=== PATIENT | female | born 1950 | race Caucasian/White ===

== ENCOUNTER 2020-10-16 06:27 | Emergency (ER) | payer MEDICARE, OTHER ==
[2020-10-16] MEDS: Loperamide 2 MG Cap PO ONE (07:12)
[2020-10-16] MEDS: Sodium Chloride 0.9% 1,000 ML IV ONE (07:13)
[2020-10-16] MEDS: Sodium Chloride 0.9% 1,000 ML ONE (07:15)
--- NOTE | 2020-10-16 07:24 | EDM.PDOC ---
ED HPI GENERAL MEDICAL PROBLEM - General Chief Complaint: Gastrointestinal Problem Stated Complaint: diarrhea Time Seen by Provider: 10/16/20 07:12 Source of Information: Reports: Patient History Limitations: Reports: No Limitations - History of Present Illness INITIAL COMMENTS - FREE TEXT/NARRATIVE: Presents the emergency room for chief complaint of diarrhea which started 2 days ago. Patient notes starting Lexapro and increasing her dose of hypertension med was seen in the clinic by her PCP. Evening she started taking Lexapro and the following morning she had a loose stool. Later that evening she had a loose diarrhea stool. The next day she had 1 diarrhea stool. She woke up last night and had two watery dark brown stools. Denies any abdominal pain or severe cramp ing, vomiting, or nausea. After she went to the bathroom last night she felt little tingling sensation throughout her body. That has resolved. She denies any chest pain shortness of breath fever chills. She notes she had a distant close contact in a house during to patient who is asymptomatic time but later tested positive that very next day with COVID-19 on [place]. Has been 10 days since that exposure. - Related Data Allergies Allergy/AdvReac Type Severity Reaction Status Date / Time guaifenesin [From Robitussin] Allergy tingling Verified 10/16/20 07:27 sensation Sulfa (Sulfonamide Allergy tingling Verified 10/16/20 07:27 Antibiotics) sensation Home Meds: Home Meds ALPRAZolam [Xanax] 0.25 mg PO Q12H PRN 10/16/20 [History] Cholecalciferol (Vitamin D3) [Vitamin D3] 1,000 unit PO DAILY 10/16/20 [History] Escitalopram [Lexapro] 10 mg PO BEDTIME 10/16/20 [History] Loperamide [Imodium] 2 mg PO ASDIRECTED PRN 10/16/20 [History] Loratadine [Claritin] 10 mg PO DAILY PRN 10/16/20 [History] Pantoprazole Sodium [Protonix] 40 mg PO DAILY 10/16/20 [History] Simvastatin [Zocor] 10 mg PO BEDTIME 10/16/20 [History] Triamcinolone Acetonide [Triamcinolone Acetonide 0.1% Crm] 1 applic TOP BID PRN 10/16/20 [History] lisinopriL [Prinivil] 20 mg PO DAILY 10/16/20 [History] ED ROS GENERAL - Review of Systems Review Of Systems: See Below Constitutional: Reports: No Symptoms. Denies: Fever, Chills HEENT: Reports: No Symptoms Respiratory: Reports: No Symptoms. Denies: Shortness of Breath Cardiovascular: Reports: No Symptoms. Denies: Chest Pain GI/Abdominal: Reports: Diarrhea. Denies: Abdominal Pain, Black Stool, Bloody Stool, Distension, Hematemesis, Hematochezia, Mucous in Stool, Nausea, Vomiting : Reports: No Symptoms Musculoskeletal: Reports: No Symptoms Neurological: Reports: Tingling, Other (which has resolved. ) Psychiatric: Reports: Anxiety (Hx of anxiety with elevated BP, which she was started on lexapro as of recent) Hematologic/Lymphatic: Reports: No Symptoms ED EXAM, GI/ABD - Physical Exam Exam: See Below Exam Limited By: No Limitations General Appearance: Alert, WD/WN, No Apparent Distress Nose: Normal Inspection Throat/Mouth: Normal Inspection, Normal Oropharynx Head: Atraumatic, Normocephalic Neck: Normal Inspection, Supple, Non-Tender, Full Range of Motion. No: Lymphadenopathy (L), Lymphadenopathy (R) Respiratory/Chest: No Respiratory Distress, Lungs Clear, Normal Breath Sounds Cardiovascular: Normal Peripheral Pulses, Regular Rate, Rhythm, No Murmur GI/Abdominal Exam: Normal Bowel Sounds, Soft, Non-Tender, No Distention Back Exam: Normal Inspection Extremities: Normal Inspection, Normal Range of Motion, No Pedal Edema Neurological: Alert, Oriented, Normal Cognition, Normal Gait Psychiatric: Normal Affect, Normal Mood Skin Exam: Warm, Dry, Intact Course - Vital Signs Last Recorded V/S: Last Vital Signs Temp 97.3 F 10/16/20 06:35 Pulse 74 10/16/20 06:35 Resp 20 10/16/20 06:35 BP 149/96 H 10/16/20 06:35 Pulse Ox 98 10/16/20 06:35 - Orders/Labs/Meds Orders: Active Orders 24 hr Category Date Time Status Peripheral IV Care [RC] . DIRECTED Care 10/16/20 07:40 Active CORONAVIRUS COVID-19 IRINA [MOLEC] Stat Lab 10/16/20 07:49 Ordered Sodium Chloride 0.9% [Normal Saline] 1,000 ml Med 10/16/20 07:10 Active IV .BOLUS Sodium Chloride 0.9% [Saline Flush] Med 10/16/20 07:40 Active 10 ml FLUSH Q8HR PRN Peripheral IV Insertion Adult [OM.PC] Routine Oth 10/16/20 07:00 Ordered Medication Orders Sodium Chloride (Normal Saline) 1,000 mls @ 999 mls/hr IV .BOLUS ONE Stop: 10/16/20 08:10 Last Admin: 10/16/20 07:13 Dose: 999 mls/hr Documented by: ERICKA Sodium Chloride (Saline Flush) 10 ml FLUSH Q8HR PRN PRN Reason: keep vein open Labs: Laboratory Tests 10/16/20 10/16/20 10/16/20 Range/Units 06:50 07:00 07:14 WBC 7.99 (5.00-10.00) 10^3/uL RBC 4.39 (3.80-5.50) 10^6/uL Hgb 13.2 (12.0-16.0) g/dL Hct 40.8 (37.0-47.0) % MCV 92.9 H (82.0-92.0) fL MCH 30.1 (27.0-31.0) pg MCHC 32.4 (32.0-36.0) g/dL RDW 12.9 (11.5-14.5) % Plt Count 213 (150-400) 10^3/uL MPV 11.4 H (7.4-10.4) fL Immature Gran % (Auto) 0.1 (0.0-5.0) % Neut % (Auto) 81.2 H (50.0-70.0) % Lymph % (Auto) 12.4 L (20.0-40.0) % [place] % (Auto) 4.6 (2.0-8.0) % Eos % (Auto) 1.4 (1.0-3.0) % Baso % (Auto) 0.3 (0.0-1.0) % Neut # (Auto) 6.49 (2.50-7.00) 10^3/uL Lymph # (Auto) 0.99 L (1.00-4.00) 10^3/uL [place] # (Auto) 0.37 (0.10-0.80) 10^3/uL Eos # (Auto) 0.11 (0.10-0.30) 10^3/uL Baso # (Auto) 0.02 (0.00-0.10) 10^3/uL Immature Gran # (Auto) 0.01 (0.00-0.50) 10^3/uL Sodium 139 (136-145) mmol/L Potassium 4.9 (3.5-5.1) mmol/L Chloride 104 (98-107) mmol/L Carbon Dioxide 23.7 (21.0-32.0) mmol/L Anion Gap 16.2 H (5-15) mmol/L BUN 19 H (7-18) mg/dL Creatinine 0.67 (0.51-1.17) mg/dL Est Cr Clr Drug Dosing 65.55 mL/min Estimated GFR (MDRD) > 60 mL/min Glucose 100 (70-140) mg/dL Calcium 8.4 L (8.7-10.3) mg/dL Total Bilirubin 0.5 (0.2-1.0) mg/dL AST 33 (15-37) U/L ALT 32 (14-63) U/L Alkaline Phosphatase 46 (46-116) U/L Total Protein 7.0 (6.4-8.2) g/dL Albumin 3.53 (3.40-5.00) g/dL Specimen Type Urinblad Urine Color Light yellow (YELLOW) Urine Appearance Clear (CLEAR) Urine pH 6.5 (5.0-9.0) Ur Specific [place] 1.020 (1.005-1.030) Urine Protein Negative (NEGATIVE) mg/dL Urine Glucose (UA) Negative (NEGATIVE) mg/dL Urine Ketones Negative (NEGATIVE) mg/dL Urine Occult Blood Trace-intact H (NEGATIVE) Urine Nitrite Negative (NEGATIVE) Urine Bilirubin Negative (NEGATIVE) Urine Urobilinogen 0.2 (0.2-1.0) E.U./dL Ur Leukocyte Esterase Negative (NEGATIVE) Urine RBC 0-5 (0-5) /HPF Urine WBC 0-5 (0-5) /HPF Ur Epithelial Cells Few /LPF Urine Bacteria Rare (NONE TO FEW) /HPF Urine Mucus Occasional H (NEGATIVE) /LPF Meds: Medications Generic Name Dose Route Start Last Admin Trade Name Freq PRN Reason Stop Dose Admin Sodium Chloride 1,000 mls @ 999 mls/hr 10/16/20 07:10 10/16/20 07:13 Normal Saline IV 10/16/20 08:10 999 mls/hr .BOLUS ONE Administration Sodium Chloride 10 ml 10/16/20 07:40 Saline Flush FLUSH Q8HR PRN keep vein open Discontinued Medications Generic Name Dose Route Start Last Admin Trade Name Najma PRN Reason Stop Dose Admin Sodium Chloride Confirm 10/16/20 06:47 10/16/20 07:15 Normal Saline Administered 10/16/20 06:48 Not Given Dose 1,000 mls @ as directed .ROUTE .STK-MED ONE Loperamide HCl 4 mg 10/16/20 07:10 10/16/20 07:12 Imodium PO 10/16/20 07:11 4 mg ONETIME ONE Administration - Re-Assessments/Exams Free Text/Narrative Re-Assessment/Exam: 10/16/20 07:38 No recent usage of antibiotics doubt C. difficile. She had a total of 4 stools in the last 3 days. No signs of dehydration. She was given 4 mg loperamide. 1 L of normal saline. Checking labs CBC electrolytes kidney and renal function. UA was ordered. Stool occult test was ordered as well. Patient declined rectal exam however she needed to have her stool collected and assess for blood therefore she was able to go have a large loose stool (which was color of brown, not black)into a collection device. COVID-19 test state was sent out patient be contacted and will renal quarantine until she finds out the results. 10/16/20 07:40 15% of patients with starting to take Lexapro can develop diarrhea. No red flags this diarrhea, doubt infectious cause at this time. she has no acute abdomen. neg. occult stool. Patient appears to be very well able tolerate p.o. fluids no signs of dehydration. Calcium just very slightly low than normal. On the night labs reassuring. I did consult her PCP which is Shelli [facility] who is on- call this morning. Reviewed the case with her. Continue with Lexapro follow-up in the clinic as scheduled this following week. continue to push fluids, electrolytes, take loperamide PO as needed [id number]. Avoid excessive dosing of loperamide as it can cause QT prolongation and constipation. Patient verbalized understanding. Departure - Departure Time of Disposition: 08:04 Disposition: Home, Self-Care 01 Condition: Good Clinical Impression: Diarrhea due to drug - Discharge Information *PRESCRIPTION DRUG MONITORING PROGRAM REVIEWED*: No *COPY OF PRESCRIPTION DRUG MONITORING REPORT IN PATIENT KIRK: No Instructions: Dehydration, Elderly, [id number] Forms: ED Department Discharge Additional Instructions: f/u with Shelli in the clinic after the covid-test returns quarantine until testing returns. push fluids and electrolytes loperamide OTC as needed for diarrhea continue with Lexapro. Sepsis Event Note (ED) - Focused Exam Vital Signs: Vital Signs Temp Pulse Resp BP Pulse Ox 10/16/20 06:35 97.3 F 74 20 149/96 H 98 - My Orders Last 24 Hours: My Active Orders 10/16/20 07:00 Peripheral IV Insertion Adult [OM.PC] Routine 10/16/20 07:10 Sodium Chloride 0.9% [Normal Saline] 1,000 ml IV .BOLUS 10/16/20 07:40 Peripheral IV Care [RC] . DIRECTED Sodium Chloride 0.9% [Saline Flush] 10 ml FLUSH Q8HR PRN 10/16/20 07:49 CORONAVIRUS COVID-19 IRINA [MOLEC] Stat - Assessment/Plan Last 24 Hours: My Active Orders 10/16/20 07:00 Peripheral IV Insertion Adult [OM.PC] Routine 10/16/20 07:10 Sodium Chloride 0.9% [Normal Saline] 1,000 ml IV .BOLUS 10/16/20 07:40 Peripheral IV Care [RC] . DIRECTED Sodium Chloride 0.9% [Saline Flush] 10 ml FLUSH Q8HR PRN 10/16/20 07:49 CORONAVIRUS COVID-19 IRINA [MOLEC] Stat
[2020-10-16 07:39] LABS: ANION GAP 16.2 mmol/L (5-15); CHLORIDE,CL 104 mmol/L (98-107); SODIUM,NA 139 mmol/L (136-145)
[2020-10-16] MEDS ORDERED: Sodium Chloride 0.9% 10 ML Syringe FLUSH PRN (07:40)
== END 2020-10-16 08:20 | disposition home or self-care (01) ==
LOC: KA.ED 06:27
DX: K52.1 Toxic gastroenteritis and colitis (principal); Z88.8 Allergy status to other drugs, medicaments and biological substances; Z88.2 Allergy status to sulfonamides; T43.225A Adverse effect of selective serotonin reuptake inhibitors, initial encounter; Z79.899 Other long term (current) drug therapy
CPT/HCPCS: 36415; 80053; 81001; 82270; 85025; 99283; 99284; A9270-GY; J7030

== ENCOUNTER 2020-11-15 11:05 | Observation (INO) | payer MEDICARE, OTHER ==
[2020-11-15] MEDS ORDERED: Sodium Chloride 0.9% 1,000 ML IV ONE (11:30)
[2020-11-15] MEDS ORDERED: Sodium Chloride 0.9% 10 ML Syringe FLUSH PRN ×3 (11:30→13:25)
--- NOTE | 2020-11-15 11:33 | EDM.PDOC ---
ED HPI GENERAL MEDICAL PROBLEM - General Chief Complaint: Respiratory Problem Stated Complaint: CHEST PAIN Time Seen by Provider: 11/15/20 11:15 Source of Information: Reports: Patient History Limitations: Reports: No Limitations - History of Present Illness INITIAL COMMENTS - FREE TEXT/NARRATIVE: 69 YO WF PRESENTS TO ER COMPLAINING OF CHEST PRESSURE/CHEST HEAVINESS AND BILATERAL ARM DISCOMFORT WHICH BEGAN 7AM. PT WAS DIAGNOSED WITH COVID 1 WEEK AGO. PT WAS ASYMPTOMATIC UNTIL 4 DAYS AGO WHEN SHE DEVELOPED CHILLS AND LOSS OF SMELL AND TASTE. PT RECEIVED OUTPATIENT CONVALESCENT PLASMA ON 11/11/20. PT DENIES SHORTNESS OF BREATH, DIZZINESS, DIAPHORESIS, OR NAUSEA/VOMITING. PT DENIES FEVERS OR COUGH. PT REPORTS CHEST PRESSURE AND ARM DISCOMFORT HAVE RESOLVED PRIOR TO ER VISIT. Onset: Today Duration: Hour(s): (4) Location: Reports: Chest, Upper Extremity, Left, Upper Extremity, Right Quality: Reports: Dull, Pressure Severity: Mild Improves with: Reports: None Worsens with: Reports: None Associated Symptoms: Reports: Chest Pain, Fever/Chills - Related Data Allergies Allergy/AdvReac Type Severity Reaction Status Date / Time guaifenesin [From Robitussin] Allergy tingling Verified 11/15/20 11:42 sensation Sulfa (Sulfonamide Allergy tingling Verified 11/15/20 11:42 Antibiotics) sensation Home Meds: Home Meds ALPRAZolam [Xanax] 0.25 mg PO Q12H PRN 10/16/20 [History] Cholecalciferol (Vitamin D3) [Vitamin D3] 1,000 unit PO DAILY 10/16/20 [History] Escitalopram [Lexapro] 10 mg PO BEDTIME 10/16/20 [History] Loperamide [Imodium] 2 mg PO ASDIRECTED PRN 10/16/20 [History] Loratadine [Claritin] 10 mg PO DAILY PRN 10/16/20 [History] Pantoprazole Sodium [Protonix] 40 mg PO DAILY 10/16/20 [History] RX: lisinopriL [Prinivil] 40 mg PO DAILY 10/16/20 [History] Simvastatin [Zocor] 20 mg PO BEDTIME 10/16/20 [History] Triamcinolone Acetonide [Triamcinolone Acetonide 0.1% Crm] 1 applic TOP BID PRN 10/16/20 [History] Past Medical History HEENT History: Reports: None Cardiovascular History: Reports: High Cholesterol, Hypertension Respiratory History: Reports: None Gastrointestinal History: Reports: None Genitourinary History: Reports: None 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 Musculoskeletal History: Reports: None Neurological History: Reports: None Psychiatric History: Reports: None Endocrine/Metabolic History: Reports: None Hematologic History: Reports: None Immunologic History: Reports: None Oncologic (Cancer) History: Reports: None Dermatologic History: Reports: None - Infectious Disease History Infectious Disease History: Reports: Chicken Pox, Measles Social & Family History - Family History Family Medical History: No Pertinent Family History - Caffeine Use Caffeine Use: Reports: Tea ED ROS GENERAL - Review of Systems Review Of Systems: See Below Constitutional: Reports: Fever, Decreased Appetite HEENT: Reports: Rhinitis Respiratory: Reports: No Symptoms Cardiovascular: Reports: Chest Pain Endocrine: Reports: No Symptoms GI/Abdominal: Reports: Diarrhea : Reports: No Symptoms Musculoskeletal: Reports: No Symptoms Skin: Reports: No Symptoms Neurological: Reports: No Symptoms Psychiatric: Reports: No Symptoms Hematologic/Lymphatic: Reports: No Symptoms Immunologic: Reports: No Symptoms ED EXAM, GENERAL - Physical Exam Exam: See Below Exam Limited By: No Limitations General Appearance: Alert, WD/WN, No Apparent Distress Head: Atraumatic, Normocephalic Neck: Normal Inspection, Supple, Non-Tender, Full Range of Motion Respiratory/Chest: No Respiratory Distress, Lungs Clear, Normal Breath Sounds, No Accessory Muscle Use, Chest Non-Tender Cardiovascular: Normal Peripheral Pulses, Regular Rate, Rhythm, No Edema, No Gallop, No JVD, No Murmur, No Rub GI/Abdominal: Normal Bowel Sounds, Soft, Non-Tender, No Organomegaly, No Distention, No Abnormal Bruit, No Mass Back Exam: Normal Inspection, Full Range of Motion, NT Extremities: Normal Inspection, Normal Range of Motion, Non-Tender, Normal Capillary Refill, No Pedal Edema Neurological: Alert, Oriented, CN II-XII Intact, Normal Cognition, Normal Gait, Normal Reflexes, No Motor/Sensory Deficits Psychiatric: Normal Affect, Normal Mood Skin Exam: Warm, Dry, Intact, Normal Color, No Rash Lymphatic: No Adenopathy #1 Interpretation EKG Date: 11/15/20 Time: 11:35 Rhythm: NSR Rate (Beats/Min): 68 [place]: Normal P-Wave: Present QRS: Normal ST-T: Normal QT: Normal Comparison: NA - No Prior EKG Course - Vital Signs Last Recorded V/S: Last Vital Signs Temp 98.6 F 11/15/20 11:05 Pulse 63 11/15/20 13:00 Resp 10 L 11/15/20 13:00 BP 167/96 H 11/15/20 13:00 Pulse Ox 100 11/15/20 13:00 - Orders/Labs/Meds Orders: Active Orders 24 hr Category Date Time Status Patient Status Manage Transfer [TRANSFER] Routine ADT 11/15/20 13:24 Active Patient Status [ADT] Routine ADT 11/15/20 13:25 Active Blood Pressure Mgt: Sepsis [RC] Q15MX2 Care 11/15/20 11:30 Active Cardiac Monitoring [RC] CONTINUOUS Care 11/15/20 13:27 Active EKG Documentation Completion [RC] ASDIRECTED Care 11/15/20 11:31 Active Oxygen Therapy [RC] PRN Care 11/15/20 13:25 Active Peripheral IV Care [RC] . DIRECTED Care 11/15/20 11:54 Active Up ad Melanie [RC] ASDIRECTED Care 11/15/20 13:25 Active VTE/DVT Education [RC] PER UNIT ROUTINE Care 11/15/20 13:25 Active Vital Signs [RC] Q4H Care 11/15/20 13:25 Active Heart Healthy Diet [DIET] Diet 11/15/20 Lunch Active CULTURE BLOOD [BC] Stat Lab 11/15/20 12:10 Received CULTURE BLOOD [BC] Stat Lab 11/15/20 12:35 Received TROPONIN I [CHEM] AM Lab 11/16/20 05:11 Ordered TROPONIN I [CHEM] Routine Lab 11/16/20 00:01 Ordered TROPONIN I [CHEM] Timed Lab 11/15/20 18:00 Ordered Aspirin [Ecotrin] Med 11/15/20 13:30 Ordered 325 mg PO DAILY Nitroglycerin [Nitro-Bid 2%] Med 11/15/20 13:30 Ordered 1 gm TOP Q6H Sodium Chloride 0.9% [Saline Flush] Med 11/15/20 11:30 Active 10 ml FLUSH Q8HR PRN Sodium Chloride 0.9% [Saline Flush] Med 11/15/20 11:54 Active 10 ml FLUSH Q8HR PRN Sodium Chloride 0.9% [Saline Flush] Med 11/15/20 13:25 Active 10 ml FLUSH Q8HR PRN Blood Culture x2 Reflex Set [OM.PC] Stat Ot 11/15/20 11:30 Ordered Peripheral IV Insertion Adult [OM.PC] Routine Oth 11/15/20 11:54 Ordered Saline Lock Insert [OM.PC] Routine Oth 11/15/20 13:25 Ordered Saline Lock Insert [OM.PC] Stat Oth 11/15/20 11:30 Ordered Severe Sepsis Onset Time [OM.PC] Stat Oth 11/15/20 11:30 Ordered Resuscitation Status Routine Resus Stat 11/15/20 13:25 Ordered EKG 12 Lead [EK] Stat Ther 11/15/20 11:30 Ordered Medication Orders Aspirin (Ecotrin) 325 mg PO DAILY CARLEY Nitroglycerin (Nitro-Bid 2%) 1 gm TOP Q6H CARLEY Sodium Chloride (Saline Flush) 10 ml FLUSH Q8HR PRN PRN Reason: keep vein open Sodium Chloride (Saline Flush) 10 ml FLUSH Q8HR PRN PRN Reason: keep vein open Sodium Chloride (Saline Flush) 10 ml FLUSH Q8HR PRN PRN Reason: keep vein open Labs: Laboratory Tests 11/15/20 11/15/20 11/15/20 Range/Units 11:45 11:45 11:45 WBC 5.88 (5.00-10.00) 10^3/uL RBC 4.42 (3.80-5.50) 10^6/uL Hgb 13.4 (12.0-16.0) g/dL Hct 40.2 (37.0-47.0) % MCV 91.0 (82.0-92.0) fL MCH 30.3 (27.0-31.0) pg MCHC 33.3 (32.0-36.0) g/dL RDW 12.2 (11.5-14.5) % Plt Count 161 (150-400) 10^3/uL MPV 10.7 H (7.4-10.4) fL Immature Gran % (Auto) 0.0 (0.0-5.0) % Neut % (Auto) 78.8 H (50.0-70.0) % Lymph % (Auto) 15.5 L (20.0-40.0) % [place] % (Auto) 4.6 (2.0-8.0) % Eos % (Auto) 0.9 L (1.0-3.0) % Baso % (Auto) 0.2 (0.0-1.0) % Neut # (Auto) 4.64 (2.50-7.00) 10^3/uL Lymph # (Auto) 0.91 L (1.00-4.00) 10^3/uL [place] # (Auto) 0.27 (0.10-0.80) 10^3/uL Eos # (Auto) 0.05 L (0.10-0.30) 10^3/uL Baso # (Auto) 0.01 (0.00-0.10) 10^3/uL Immature Gran # (Auto) 0.00 (0.00-0.50) 10^3/uL PT 9.5 (9.2-11.2) SEC INR 0.9 (0.9-1.1) APTT 27.4 (22.8-31.4) SEC Sodium 138 (136-145) mmol/L Potassium 4.0 (3.5-5.1) mmol/L Chloride 102 (98-107) mmol/L Carbon Dioxide 27.3 (21.0-32.0) mmol/L Anion Gap 12.7 (5-15) mmol/L BUN 13 (7-18) mg/dL Creatinine 0.70 (0.51-1.17) mg/dL Est Cr Clr Drug Dosing 64.81 mL/min Estimated GFR (MDRD) > 60 mL/min Glucose 101 (70-140) mg/dL Lactic Acid (0.4-2.0) mmol/L Calcium 9.2 (8.7-10.3) mg/dL Total Bilirubin 0.4 (0.2-1.0) mg/dL AST 20 (15-37) U/L ALT 28 (14-63) U/L Alkaline Phosphatase 38 L (46-116) U/L Creatine Kinase 85 (26-276) U/L CK-MB (CK-2) 1.45 (0.00-3.60) ng/mL Troponin I < 0.017 (0.000-0.056) ng/mL Total Protein 7.0 (6.4-8.2) g/dL Albumin 3.68 (3.40-5.00) g/dL Specimen Type Urine Color (YELLOW) Urine Appearance (CLEAR) Urine pH (5.0-9.0) Ur Specific [place] (1.005-1.030) Urine Protein (NEGATIVE) mg/dL Urine Glucose (UA) (NEGATIVE) mg/dL Urine Ketones (NEGATIVE) mg/dL Urine Occult Blood (NEGATIVE) Urine Nitrite (NEGATIVE) Urine Bilirubin (NEGATIVE) Urine Urobilinogen (0.2-1.0) E.U./dL Ur Leukocyte Esterase (NEGATIVE) Urine RBC (0-5) /HPF Urine WBC (0-5) /HPF Ur Epithelial Cells /LPF Urine Bacteria (NONE TO FEW) /HPF 11/15/20 11/15/20 Range/Units 11:45 12:30 WBC (5.00-10.00) 10^3/uL RBC (3.80-5.50) 10^6/uL Hgb (12.0-16.0) g/dL Hct (37.0-47.0) % MCV (82.0-92.0) fL MCH (27.0-31.0) pg MCHC (32.0-36.0) g/dL RDW (11.5-14.5) % Plt Count (150-400) 10^3/uL MPV (7.4-10.4) fL Immature Gran % (Auto) (0.0-5.0) % Neut % (Auto) (50.0-70.0) % Lymph % (Auto) (20.0-40.0) % [place] % (Auto) (2.0-8.0) % Eos % (Auto) (1.0-3.0) % Baso % (Auto) (0.0-1.0) % Neut # (Auto) (2.50-7.00) 10^3/uL Lymph # (Auto) (1.00-4.00) 10^3/uL [place] # (Auto) (0.10-0.80) 10^3/uL Eos # (Auto) (0.10-0.30) 10^3/uL Baso # (Auto) (0.00-0.10) 10^3/uL Immature Gran # (Auto) (0.00-0.50) 10^3/uL PT (9.2-11.2) SEC INR (0.9-1.1) APTT (22.8-31.4) SEC Sodium (136-145) mmol/L Potassium (3.5-5.1) mmol/L Chloride (98-107) mmol/L Carbon Dioxide (21.0-32.0) mmol/L Anion Gap (5-15) mmol/L BUN (7-18) mg/dL Creatinine (0.51-1.17) mg/dL Est Cr Clr Drug Dosing mL/min Estimated GFR (MDRD) mL/min Glucose (70-140) mg/dL Lactic Acid 1.5 (0.4-2.0) mmol/L Calcium (8.7-10.3) mg/dL Total Bilirubin (0.2-1.0) mg/dL AST (15-37) U/L ALT (14-63) U/L Alkaline Phosphatase (46-116) U/L Creatine Kinase (26-276) U/L CK-MB (CK-2) (0.00-3.60) ng/mL Troponin I (0.000-0.056) ng/mL Total Protein (6.4-8.2) g/dL Albumin (3.40-5.00) g/dL Specimen Type Urinvoid Urine Color Light yellow (YELLOW) Urine Appearance Clear (CLEAR) Urine pH 7.0 (5.0-9.0) Ur Specific [place] 1.015 (1.005-1.030) Urine Protein Negative (NEGATIVE) mg/dL Urine Glucose (UA) Negative (NEGATIVE) mg/dL Urine Ketones Negative (NEGATIVE) mg/dL Urine Occult Blood Negative (NEGATIVE) Urine Nitrite Negative (NEGATIVE) Urine Bilirubin Negative (NEGATIVE) Urine Urobilinogen 0.2 (0.2-1.0) E.U./dL Ur Leukocyte Esterase Negative (NEGATIVE) Urine RBC 0-5 (0-5) /HPF Urine WBC 0-5 (0-5) /HPF Ur Epithelial Cells Rare /LPF Urine Bacteria Rare (NONE TO FEW) /HPF Meds: Medications Generic Name Dose Route Start Last Admin Trade Name Freq PRN Reason Stop Dose Admin Aspirin 325 mg 11/15/20 13:30 Ecotrin PO DAILY CARLEY Nitroglycerin 1 gm 11/15/20 13:30 Nitro-Bid 2% TOP Q6H CARLEY Sodium Chloride 10 ml 11/15/20 11:30 Saline Flush FLUSH Q8HR PRN keep vein open Sodium Chloride 10 ml 11/15/20 11:54 Saline Flush FLUSH Q8HR PRN keep vein open Sodium Chloride 10 ml 11/15/20 13:25 Saline Flush FLUSH Q8HR PRN keep vein open Discontinued Medications Generic Name Dose Route Start Last Admin Trade Name Freq PRN Reason Stop Dose Admin Sodium Chloride 1,000 mls @ 1,000 mls/hr 11/15/20 11:30 11/15/20 11:56 Normal Saline IV 11/15/20 12:29 1,000 mls/hr BOLUS ONE Administration Protocol - Radiology Interpretation Free Text/Narrative:: CXR-NAD Departure - Departure Time of Disposition: 13:21 Disposition: Refer to Observation Condition: Good Clinical Impression: COVID-19 Chest pain Qualifiers: Chest pain type: unspecified Qualified Code(s): R07.9 - Chest pain, unspecified Hypertension Qualifiers: Hypertension type: essential hypertension Qualified Code(s): I10 - Essential (primary) hypertension - Discharge Information Referrals: Kim Adhikari PA-C [Primary Care Provider] - Forms: ED Department Discharge Sepsis Event Note (ED) - Focused Exam Vital Signs: Vital Signs Temp Pulse Resp BP Pulse Ox 11/15/20 13:00 63 10 L 167/96 H 100 11/15/20 12:46 58 L 10 L 160/84 H 100 11/15/20 12:32 70 13 149/84 H 97 11/15/20 12:22 73 11 L 161/85 H 97 11/15/20 11:45 67 9 L 158/86 H 98 11/15/20 11:30 74 12 155/91 H 96 11/15/20 11:05 98.6 F 73 10 L 208/177 H 99 - My Orders Last 24 Hours: My Active Orders 11/15/20 11:30 Blood Pressure Mgt: Sepsis [RC] Q15MX2 Sodium Chloride 0.9% [Saline Flush] 10 ml FLUSH Q8HR PRN Blood Culture x2 Reflex Set [OM.PC] Stat Saline Lock Insert [OM.PC] Stat Severe Sepsis Onset Time [OM.PC] Stat EKG 12 Lead [EK] Stat 11/15/20 11:31 EKG Documentation Completion [RC] ASDIRECTED 11/15/20 11:54 Peripheral IV Care [RC] . DIRECTED Sodium Chloride 0.9% [Saline Flush] 10 ml FLUSH Q8HR PRN Peripheral IV Insertion Adult [OM.PC] Routine 11/15/20 Lunch Heart Healthy Diet [DIET] 11/15/20 12:10 CULTURE BLOOD [BC] Stat 11/15/20 12:35 CULTURE BLOOD [BC] Stat 11/15/20 13:24 Patient Status Manage Transfer [TRANSFER] Routine 11/15/20 13:25 Patient Status [ADT] Routine Oxygen Therapy [RC] PRN Up ad Melanie [RC] ASDIRECTED VTE/DVT Education [RC] PER UNIT ROUTINE Vital Signs [RC] Q4H Sodium Chloride 0.9% [Saline Flush] 10 ml FLUSH Q8HR PRN Saline Lock Insert [OM.PC] Routine Resuscitation Status Routine 11/15/20 13:27 Cardiac Monitoring [RC] CONTINUOUS 11/15/20 13:30 Aspirin [Ecotrin] 325 mg PO DAILY Nitroglycerin [Nitro-Bid 2%] 1 gm TOP Q6H 11/15/20 18:00 TROPONIN I [CHEM] Timed 11/16/20 00:01 TROPONIN I [CHEM] Routine 11/16/20 05:11 TROPONIN I [CHEM] AM - Assessment/Plan Last 24 Hours: My Active Orders 11/15/20 11:30 Blood Pressure Mgt: Sepsis [RC] Q15MX2 Sodium Chloride 0.9% [Saline Flush] 10 ml FLUSH Q8HR PRN Blood Culture x2 Reflex Set [OM.PC] Stat Saline Lock Insert [OM.PC] Stat Severe Sepsis Onset Time [OM.PC] Stat EKG 12 Lead [EK] Stat 11/15/20 11:31 EKG Documentation Completion [RC] ASDIRECTED 11/15/20 11:54 Peripheral IV Care [RC] . DIRECTED Sodium Chloride 0.9% [Saline Flush] 10 ml FLUSH Q8HR PRN Peripheral IV Insertion Adult [OM.PC] Routine 11/15/20 Lunch Heart Healthy Diet [DIET] 11/15/20 12:10 CULTURE BLOOD [BC] Stat 11/15/20 12:35 CULTURE BLOOD [BC] Stat 11/15/20 13:24 Patient Status Manage Transfer [TRANSFER] Routine 11/15/20 13:25 Patient Status [ADT] Routine Oxygen Therapy [RC] PRN Up ad Melanie [RC] ASDIRECTED VTE/DVT Education [RC] PER UNIT ROUTINE Vital Signs [RC] Q4H Sodium Chloride 0.9% [Saline Flush] 10 ml FLUSH Q8HR PRN Saline Lock Insert [OM.PC] Routine Resuscitation Status Routine 11/15/20 13:27 Cardiac Monitoring [RC] CONTINUOUS 11/15/20 13:30 Aspirin [Ecotrin] 325 mg PO DAILY Nitroglycerin [Nitro-Bid 2%] 1 gm TOP Q6H 11/15/20 18:00 TROPONIN I [CHEM] Timed 11/16/20 00:01 TROPONIN I [CHEM] Routine 11/16/20 05:11 TROPONIN I [CHEM] AM Assessment:: 1. CHEST PAIN 2. COVID POSITIVE 3. UNCONTROLLED HYPERTENSION Plan: 1. ADMIT FOR 23 HOUR OBS FOR CHEST PAIN- DOROTEO JAMES ADMITTING 2. TROP I Q6 X 3 3. ASA/NITRO/SUPPORTIVE CARE 4. FOLLOW BP AND ADJUST MEDICATIONS NEEDED
--- NOTE | 2020-11-15 12:06 | CR ---
[id number] RAD/RAD Chest PA or AP 1V EXAM: RAD Chest PA or AP 1V INDICATION: SHORTNESS OF BREATH. COMPARISON: September 27, 2010. DISCUSSION: Cardiomediastinal silhouette is normal in size and contour. No infiltrate, effusion, pneumothorax, or edema. Pulmonary hyperinflation. IMPRESSION: No acute cardiopulmonary abnormality. Junior Tejeda DO 11/15/20 [id number] Thank you for allowing us to participate in the care of your patient.
[2020-11-15 12:34] LABS: ANION GAP 12.7 mmol/L (5-15); CHLORIDE,CL 102 mmol/L (98-107); SODIUM,NA 138 mmol/L (136-145)
[2020-11-15 12:42] LABS: PTT,PARTIAL THROMBOPLSTIN TIME 27.4 SEC (22.8-31.4)
[2020-11-15] MEDS ORDERED: Nitroglycerin 2% Oint 1 GM UD Packet TOP SCH (13:30)
[2020-11-15] MEDS: Aspirin 325 MG Tab.EC PO SCH (14:00)
[2020-11-15] MEDS ORDERED: LORATADINE 10 MG PO PRN ×2 (16:39→23:50)
[2020-11-15] MEDS ORDERED: ALPRAZolam 0.25 MG Tab PO PRN (16:39)
[2020-11-15] MEDS ORDERED: ESCITALOPRAM 10 MG PO SCH (21:00)
[2020-11-15] MEDS ORDERED: SIMVASTATIN 10 MG PO SCH (21:00)
[2020-11-15] MEDS: Loperamide 2 MG Cap PO PRN ×2 (21:52→23:00)
[2020-11-15] MEDS ORDERED: ALPRAZolam 0.25 MG Tab **OWN MED PO PRN (23:42)
[2020-11-16] MEDS: Aspirin 325 MG Tab.EC PO SCH (08:09)
[2020-11-16] MEDS ORDERED: Pantoprazole 40 MG Tab.CR ** OWN MED PO SCH ×2 (09:00)
[2020-11-16] MEDS ORDERED: Lisinopril 20 MG Tab ** OWN MED PO SCH ×2 (09:00)
[2020-11-16] MEDS ORDERED: ESCITALOPRAM 10 MG PO SCH (21:00)
[2020-11-16] MEDS ORDERED: SIMVASTATIN 10 MG PO SCH (21:00)
--- NOTE | 2020-11-17 00:06 | PCM.HP.2 ---
H&P History of Present Illness - General Date of Service: 11/16/20 Admit Problem/Dx: Admission Diagnosis/Problem Admission Diagnosis/Problem Chest pain - History of Present Illness Initial Comments - Free Text/Narative: Mrs. Armendariz is a 69yoF with history of HTN and HLD with a recent history notable for positive COVID-19 testing on 11/08/20 (tested due to being a known close contact to who was previously positive) and symptoms (chills, loss of taste and smell) developing on 11/10/20 when she also received bamlanivimab monoclonal antibody infusion. Recent history additionally notable for increased stress primarily related to 's recent cancer diagnosis and plan for upcoming stem cell transplant as well as both of their +COVID-19 status. On the morning of admission 11/15/20 around 0700, she developed diffuse chest pressure and bilateral arm discomfort associated with numb sensation in bilateral arms. She presented to the [facility] ED, by which time the pain had resolved. In the ED, evaluation was notable for mild hypertension, but otherwise normal VS and labs, including CBC/CMP/troponin/UA. She was admitted for observation in order to further trend troponin as well as monitor cardiorespiratory status closely in the setting of COVID-19. Serial troponin obtained and all negative. This mor pancho, she had one recurrent episode of the same pain and numbness, which coincided with when she was quite anxious and self resolved. EKG and troponin obtained at that time both normal. She otherwise has overall felt well and denies any new symptoms. She does endorse significant anxiety lately, which she feels is impacting her day-to-day functioning, but reports that this is at least mildly improving since starting escitalopram and using alprazolam intermittently during extremely high periods of anxiety and/or stress. - Related Data Allergies/Adverse Reactions: Allergies Allergy/AdvReac Type Severity Reaction Status Date / Time guaifenesin [From Robitussin] Allergy tingling Verified 11/15/20 11:42 sensation Sulfa (Sulfonamide Allergy tingling Verified 11/15/20 11:42 Antibiotics) sensation Home Medications: Home Meds ALPRAZolam [Xanax] 0.25 mg PO Q12H PRN 10/16/20 [History] Cholecalciferol (Vitamin D3) [Vitamin D3] 1,000 unit PO DAILY 10/16/20 [History] Escitalopram [Lexapro] 10 mg PO BEDTIME 10/16/20 [History] Loperamide [Imodium] 2 mg PO ASDIRECTED PRN 10/16/20 [History] Loratadine [Claritin] 10 mg PO DAILY PRN 10/16/20 [History] Pantoprazole Sodium [Protonix] 40 mg PO DAILY 10/16/20 [History] Simvastatin [Zocor] 20 mg PO BEDTIME 10/16/20 [History] Triamcinolone Acetonide [Triamcinolone Acetonide 0.1% Crm] 1 applic TOP BID PRN 10/16/20 [History] lisinopriL [Prinivil] 40 mg PO DAILY 10/16/20 [History] Past Medical History HEENT History: Reports: None Cardiovascular History: Reports: High Cholesterol, Hypertension Respiratory History: Reports: None Gastrointestinal History: Reports: GERD Genitourinary History: Reports: None 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 Musculoskeletal History: Reports: None, Fracture Other Musculoskeletal History: Rt arm broke as child Neurological History: Reports: None Psychiatric History: Reports: Anxiety Endocrine/Metabolic History: Reports: None Hematologic History: Reports: None Immunologic History: Reports: None Oncologic (Cancer) History: Reports: None Dermatologic History: Reports: None - Infectious Disease History Infectious Disease History: Reports: Chicken Pox, Measles - Past Surgical History HEENT Surgical History: Reports: Tonsillectomy, Other (See Below) Other HEENT Surgeries/Procedures: Esophageal repair 2003 Cardiovascular Surgical History: Reports: None GI Surgical History: Reports: Colonoscopy, EGD, Polypectomy Female Surgical History: Reports: Hysterectomy Social & Family History - Family History Family Medical History: No Pertinent Family History Cardiac: Reports: CAD Endocrine/Metabolic: Reports: Diabetes, type II - Tobacco Use Tobacco Use Status *Q: Never Tobacco User - Caffeine Use Caffeine Use: Reports: None - Recreational Drug Use Recreational Drug Use: No H&P Review of Systems - Review of Systems: Review Of Systems: Comprehensive ROS is negative, except as noted in HPI. Exam - Exam Exam: See Below - Vital Signs Vital Signs: Last Vital Signs Temp 36.4 C 11/16/20 10:51 Pulse 70 11/16/20 10:51 Resp 16 11/16/20 10:51 BP 160/88 H 11/16/20 10:51 Pulse Ox 99 11/16/20 13:25 Weight: 64.546 kg - Exam Physical Exam Comments:: GENERAL: Well-appearing elderly white female sitting in bedside chair in no acute distress. HEENT: Normocephalic, atraumatic. Conjunctiva clear. Nares patent without discharge. NECK: Supple, no masses. CV: Regular rate and rhythm, no murmurs, rubs, or gallops. 2+ radial pulses. PULMONARY: Normal effort, clear to auscultation bilaterally, no wheezes, rales, or rhonchi. ABDOMEN: Positive bowel sounds, soft, nontender, nondistended. EXTREMITIES: No edema, cyanosis, or clubbing. MUSCULOSKELETAL: Moves all extremities well. NEUROLOGICAL: No obvious deficits. DERMATOLOGIC: No rashes or suspicious lesions in exposed areas. PSYCHIATRIC: Alert, interactive, appropriate affect. - Patient Data Lab Results Last 24 hrs: Laboratory Results - last 24 hr 11/16/20 11/16/20 11/16/20 Range/Units 00:01 06:40 11:45 Troponin I < 0.017 < 0.017 < 0.017 (0.000-0.056) ng/mL Result Diagrams: 11/15/20 11:45 11/15/20 11:45 Phan Results Last 24 hrs: Microbiology 11/15/20 12:35 Aerobic Blood Culture - Preliminary Blood - Arm, Left NO GROWTH AFTER 1 DAY Anaerobic Blood Culture - Preliminary NO GROWTH AFTER 1 DAY 11/15/20 12:10 Aerobic Blood Culture - Preliminary Blood - Arm, Right NO GROWTH AFTER 1 DAY Anaerobic Blood Culture - Preliminary NO GROWTH AFTER 1 DAY Sepsis Event Note - Evaluation Sepsis Screening Result: No Definite Risk - Focused Exam Vital Signs: Vital Signs Pulse Ox 11/16/20 13:25 99 Problem List Initiated/Reviewed/Updated: Yes Orders Last 24hrs: Active Orders 24 hr Category Date Time Status EKG 12 Lead [EK] Stat Ther 11/16/20 11:10 Ordered Assessment/Plan Comment:: Mrs. Armendariz is a 69yoF with history of HTN and HLD with a recent history notable for positive COVID-19 testing on 11/08/20 (tested due to being a known close contact to who was previously positive) and symptoms (chills, loss of taste and smell) developing on 11/10/20 when she also received bamlanivimab monoclonal antibody infusion. Recent history additionally notable for increased stress primarily related to 's recent cancer diagnosis and plan for upcoming stem cell transplant as well as both of their +COVID-19 status. On the morning of admission 11/15/20 around 0700, she developed diffuse chest pressure and bilateral arm discomfort associated with numb sensation in bilateral arms. She presented to the [facility] ED, by which time the pain had resolved. In the ED, evaluation was notable for mild hypertension, but otherwise normal VS and labs, including CBC/CMP/troponin/UA as well as normal EKG. She was admitted for observation in order to further trend troponin as well as monitor cardiorespiratory status closely in the setting of COVID-19. Serial troponins obtained and all negative. On the morning of discharge, she had one recurrent episode of the same pain and numbness, which coincided with when she was quite anxious and self resolved. EKG and troponin obtained at that time both normal. She otherwise has overall felt well and denies any new symptoms. She does endorse significant anxiety lately, which she feels is impacting her day-to-day functioning, but reports that this is at least mildly improving since starting escitalopram and using alprazolam intermittently during extremely high periods of anxiety and/or stress. Hospitalization problems and plan: # Chest pain: Suspect etiology as anxiety. Troponin negative x4, EKG normal. # Hypertension: Intermittent mildly elevated while in the hospital. Continue lisinopril and home BP monitoring. # Hyperlipidemia: Continue statin. # Generalized anxiety disorder: Likely contributor to chest pain, as above. Continue escitalopram Hospitalization details: # FEN: No IVF. Electrolytes normal. Heart healthy diet. # Code status: FULL. # Emergency contact: , Chu. # Disposition: Admitted to observation status to trend troponin and monitor cardiopulmonary status.
--- NOTE | 2020-11-17 00:07 | PCM.DCSUM1 ---
Discharge Summary - Hospital Course Free Text/Narrative:: Date of admission: 11/15/20 Date of discharge: 11/16/20 Admission diagnoses: # Chest pain # Hypertension # Hyperlipidemia # Generalized anxiety disorder Discharge diagnoses: # Chest pain, resolved # Hypertension # Hyperlipidemia # Generalized anxiety disorder Hospital course: Mrs. Armendariz is a 69yoF with history of HTN and HLD with a recent history notable for positive COVID-19 testing on 11/08/20 (tested due to being a known close contact to who was previously positive) and symptoms (chills, loss of taste and smell) developing on 11/10/20 when she also received bamlanivimab monoclonal antibody infusion. Recent history additionally notable for increased stress primarily related to 's recent cancer diagnosis and plan for upcoming stem cell transplant as well as both of their +COVID-19 status. On the morning of admission 11/15/20 around 0700, she developed diffuse chest pressure and bilateral arm discomfort associated with numb sensation in bilateral arms. She presented to the ED, by which time the pain had resolved. In the ED, evaluation was notable for mild hypertension, but otherwise normal VS and labs, including CBC/CMP/troponin/UA as well as normal EKG. She was admitted for observation in order to further trend troponin as well as monitor cardiorespiratory status closely in the setting of COVID-19. Serial troponins obtained and all negative. On the morning of discharge, she had one recurrent episode of the same pain and numbness, which coincided with when she was quite anxious and self resolved; EKG and troponin obtained at that time both normal. She otherwise has overall felt well and denies any new symptoms. Telemetry without concerns. She does endorse significant anxiety lately, which she feels is impacting her day-to-day functioning, but reports that this is at least mildly improving since starting escitalopram and using alprazolam intermittently during extremely high periods of anxiety and/or stress. Discussed current status at length and she feels comfortable staying on her current regimen and following up in the clinic to readdress. Discharge and follow-up recommendations: - Discharge to home - Medication changes at discharge: None - Follow-up with NORIS Aldana, in 5 days - Discharge Data Discharge Date: 11/16/20 Discharge Disposition: Home, Self-Care 01 Condition: Good - Referral to Home Health Primary Care Physician: Kim Adhikari PA-C - Patient Instructions Diet: Usual Diet as Tolerated Activity: As Tolerated Notify Provider of: Fever, Increased Pain, Nausea and/or Vomiting - Discharge Plan *PRESCRIPTION DRUG MONITORING PROGRAM REVIEWED*: Not Applicable *COPY OF PRESCRIPTION DRUG MONITORING REPORT IN PATIENT KIRK: Not Applicable Home Medications: Home Meds ALPRAZolam [Xanax] 0.25 mg PO Q12H PRN 10/16/20 [History] Cholecalciferol (Vitamin D3) [Vitamin D3] 1,000 unit PO DAILY 10/16/20 [History] Escitalopram [Lexapro] 10 mg PO BEDTIME 10/16/20 [History] Loperamide [Imodium] 2 mg PO ASDIRECTED PRN 10/16/20 [History] Loratadine [Claritin] 10 mg PO DAILY PRN 10/16/20 [History] Pantoprazole Sodium [Protonix] 40 mg PO DAILY 10/16/20 [History] Simvastatin [Zocor] 20 mg PO BEDTIME 10/16/20 [History] Triamcinolone Acetonide [Triamcinolone Acetonide 0.1% Crm] 1 applic TOP BID PRN 10/16/20 [History] lisinopriL [Prinivil] 40 mg PO DAILY 10/16/20 [History] Referrals: Shelli Richard FEATHER BALER [Nurse Practitioner] - 11/21/20 - Discharge Summary/Plan Comment DC Time >30 min.: Yes Discharge Summary/Plan Comment: Same day admission/discharge. - Patient Data Vitals - Most Recent: Last Vital Signs Temp 36.4 C 11/16/20 10:51 Pulse 70 11/16/20 10:51 Resp 16 11/16/20 10:51 BP 160/88 H 11/16/20 10:51 Pulse Ox 99 11/16/20 13:25 Weight - Most Recent: 64.546 kg Lab Results - Last 24 hrs: Laboratory Results - last 24 hr 11/16/20 11/16/20 11/16/20 Range/Units 00:01 06:40 11:45 Troponin I < 0.017 < 0.017 < 0.017 (0.000-0.056) ng/mL [place] Results - Last 24 hrs: Microbiology 11/15/20 12:35 Aerobic Blood Culture - Preliminary Blood - Arm, Left NO GROWTH AFTER 1 DAY Anaerobic Blood Culture - Preliminary NO GROWTH AFTER 1 DAY 11/15/20 12:10 Aerobic Blood Culture - Preliminary Blood - Arm, Right NO GROWTH AFTER 1 DAY Anaerobic Blood Culture - Preliminary NO GROWTH AFTER 1 DAY Med Orders - Current: Current Medications Discontinued Medications Alprazolam (Xanax) 0.25 mg PO Q12H PRN PRN Reason: Anxiety Last Admin: 11/15/20 22:59 Dose: 0.25 mg Documented by: Alprazolam (Xanax) 0.25 mg PO Q12H PRN PRN Reason: Anxiety Aspirin (Ecotrin) 325 mg PO DAILY [facility] Last Admin: 11/16/20 08:09 Dose: 325 mg Documented by: Escitalopram Oxalate (Lexapro) 10 mg PO BEDTIME [facility] Last Admin: 11/15/20 21:51 Dose: 10 mg Documented by: Escitalopram Oxalate (Lexapro) 10 mg PO BEDTIME [facility] Sodium Chloride (Normal Saline) 1,000 mls @ 1,000 mls/hr IV BOLUS ONE; Protocol Stop: 11/15/20 12:29 Last Admin: 11/15/20 11:56 Dose: 1,000 mls/hr Documented by: Lisinopril (Prinivil) 40 mg PO DAILY [facility] Lisinopril (Prinivil) 40 mg PO DAILY [facility] Last Admin: 11/16/20 09:38 Dose: 40 mg Documented by: Loperamide HCl (Imodium) 2 mg PO ASDIRECTED PRN PRN Reason: Diarrhea Last Admin: 11/15/20 23:00 Dose: 2 mg Documented by: Loratadine (Claritin) 10 mg PO DAILY PRN PRN Reason: Congestion Loratadine (Claritin) 10 mg PO DAILY PRN PRN Reason: Congestion Nitroglycerin (Nitro-Bid 2%) 1 gm TOP Q6H [facility] Last Admin: 11/15/20 14:00 Dose: 1 gm Documented by: Pantoprazole Sodium (Protonix) 40 mg PO DAILY [facility] Pantoprazole Sodium (Protonix) 40 mg PO DAILY [facility] Last Admin: 11/16/20 09:38 Dose: 40 mg Documented by: Simvastatin (Zocor) 20 mg PO BEDTIME [facility] Last Admin: 11/15/20 21:52 Dose: 20 mg Documented by: Simvastatin (Zocor) 20 mg PO BEDTIME [facility] Sodium Chloride (Saline Flush) 10 ml FLUSH Q8HR PRN PRN Reason: keep vein open Sodium Chloride (Saline Flush) 10 ml FLUSH Q8HR PRN PRN Reason: keep vein open Sodium Chloride (Saline Flush) 10 ml FLUSH Q8HR PRN PRN Reason: keep vein open
== END 2020-11-16 14:05 | disposition home or self-care (01) ==
LOC: KA.ED 11:05 → KA.MS 13:24
PROVIDERS: ADMIT Physician Assistant Medical; ATTEND Nurse Practitioner Family
DX: R07.89 Other chest pain (principal); U07.1 COVID-19; I10 Essential (primary) hypertension; E78.5 Hyperlipidemia, unspecified; E78.00 Pure hypercholesterolemia, unspecified; K21.9 Gastro-esophageal reflux disease without esophagitis; F41.1 Generalized anxiety disorder; Z88.8 Allergy status to other drugs, medicaments and biological substances; Z88.2 Allergy status to sulfonamides; Z79.899 Other long term (current) drug therapy; Z98.890 Other specified postprocedural states
CPT/HCPCS: 36415; 71045; 80053; 81001; 82550; 82553; 83605; 84484; 85025; 85610; 85730; 87040; 93005; 99220; 99285-25; A9270-GY; G0378; J7030; U0002

== ENCOUNTER 2023-09-28 08:45 | Emergency (ER) | payer MEDICARE, OTHER | END 2023-09-28 09:22 | disposition home or self-care (01) | LOC: KA.ED 08:45 | DX: L01.00 Impetigo, unspecified (principal); I10 Essential (primary) hypertension; K21.9 Gastro-esophageal reflux disease without esophagitis; E78.00 Pure hypercholesterolemia, unspecified; Z90.710 Acquired absence of both cervix and uterus; Z88.2 Allergy status to sulfonamides; Z88.8 Allergy status to other drugs, medicaments and biological substances; Z79.899 Other long term (current) drug therapy | CPT/HCPCS: 99282 ==